=== PATIENT | female | born 1985 | race African-American/Black ===

== ENCOUNTER 2019-10-12 03:21 | Emergency (ER) | payer SELFPAY ==
[~2019-10-12] VITALS: Ht 170.2 cm; Wt 73.0 kg
[2019-10-12] MEDS ORDERED: KETOROLAC 60MG/2ML VIAL IM ONE (04:00)
[2019-10-12] MEDS ORDERED: HYDROCODONE/ACETAMINOPHEN 5/325MG TABLET PO ONE (05:00)
[2019-10-12 06:07] VITALS: BP 125/76
== END 2019-10-12 06:10 | disposition home or self-care (01) ==
LOC: ER 03:21
DX: M25.50 Pain in unspecified joint (principal); M79.0 Rheumatism, unspecified; D57.3 Sickle-cell trait
CPT/HCPCS: 96372; 99283; J1885